=== PATIENT | male | born 1985 | race Two or more races ===

== ENCOUNTER 2024-04-29 22:14 | Emergency (ER) | payer OTHER ==
[~2024-04-29] VITALS: Ht 170.2 cm; Wt 99.8 kg
[2024-04-30] MEDS ORDERED: KETOROLAC TROMETHAMINE 60 MG VIAL IM STA (01:03)
[2024-04-30] MEDS ORDERED: KETOROLAC TROMETHAMINE 60 MG VIAL IM ONE (01:19)
[2024-04-30 01:34] LABS: HEMATOCRIT 45.4 % (39.0-48.0); HEMOGLOBIN 15.9 g/dL (13-16.00); MEAN CELL VOLUME 89.4 fL (80.0-100.00); MEAN CORPUSCULAR HEMOGLOBIN 31.4 pg (27.00-32.0); MEAN CORPUSCULAR HGB CONC 35.2 g/dl (32.0-36.0); PLATELET COUNT 215 K/uL (150-450); RED BLOOD COUNT 5.07 M/uL (4.00-6.00); RED CELL DISTRIBUTION WIDTH 12.8 % (11.5-14.5)
[2024-04-30 02:18] LABS: PH,URINE 5.5 (5.0-8.0); URINE APPEARANCE Clear; URINE BILIRRUBIN Negative (NEGATIVE); URINE BLOOD Negative; URINE COLOR Yellow; URINE GLUCOSE Negative (NEGATIVE); URINE KETONE Negative (NEGATIVE); URINE LEUKOCYTE Negative; URINE NITRATE Negative; URINE PROTEIN Negative (NEGATIVE)
[2024-04-30 02:40] LABS: URINE BACTERIA 23.2 uL (0.0-1933); URINE EPITHELIAL CELLS 4.5 uL (0.0-38.8); URINE RBC 2.9 uL (0.0-20.8)
[2024-04-30 02:41] LABS: URINE CAST 0.88 uL (0.0-1.40)
[2024-04-30] MEDS ORDERED: CEPHALEXIN500 MG PO (04:45)
[2024-04-30] MEDS ORDERED: KETO10TA2 PO (04:45)
== END 2024-04-30 05:10 | disposition home or self-care (01) ==
LOC: ER 22:17
PROVIDERS: General Practice
DX: M25.561 Pain in right knee (principal); N39.0 Urinary tract infection, site not specified